=== PATIENT | female | born 1950 | race Caucasian/White ===

== ENCOUNTER → 2018-03-13 | Outpatient (CLI) | payer OTHER, MEDICARE ==
[~2018-03-13] MED LIST: IOPAMIDOL (ISOVUE 370) 100 ML BTL IV ONE; METOPROLOL TARTRATE 5 MG/5 ML INJ ONE
== END ==
LOC: FIMAGING 09:45
PROVIDERS: ATTEND Internal Medicine Cardiovascular Disease
DX: I25.10 Atherosclerotic heart disease of native coronary artery without angina pectoris (principal); I77.819 Aortic ectasia, unspecified site; I42.9 Cardiomyopathy, unspecified; E78.5 Hyperlipidemia, unspecified; I51.7 Cardiomegaly
CPT/HCPCS: 75574; Q9967; 82565-PO

== ENCOUNTER 2018-07-13 07:20 | Day surgery (SDC) | payer OTHER, MEDICARE ==
[2018-07-13] MEDS ORDERED: NS 1,000 ML IV ONE (07:25)
[2018-07-13] MEDS ORDERED: diphenhydrAMINE 25 MG CAP PO ONE (07:25)
[2018-07-13] MEDS ORDERED: ASPIRIN EC 325 MG TAB PO ONE (07:25)
[2018-07-13] MEDS ORDERED: FAMOTIDINE 20 MG TAB PO ONE (07:25)
[2018-07-13] MEDS ORDERED: DIAZEPAM 5 MG TAB PO ONE (07:25)
[2018-07-13 08:17] LABS: PLATELET COUNT 202 10^3/uL (150-400)
[2018-07-13 08:25] LABS: INR 0.89 (0.83-1.16); PROTIME(PATIENT) 12.3 SEC (12.0-15.0)
--- NOTE | 2018-07-13 08:32 | CPEKG ---
Test Reason : OPEN Blood Pressure : / mmHG Vent. Rate : 065 BPM Atrial Rate : 064 BPM P-R Int : 138 ms QRS Dur : 077 ms QT Int : 438 ms P-R-T Axes : 039 043 207 degrees QTc Int : 456 ms Sinus rhythm Probable left atrial enlargement LVH with secondary repolarization abnormality ST depression, consider ischemia, diffuse lds Confirmed by Mart Shafer ([id number]) on 07/13/2018 8:31:54 AM Referred By: Confirmed By:Mart Shafer
[2018-07-13] MEDS ORDERED: fentaNYL 100 MCG/2 ML INJ ONE (08:39)
[2018-07-13] MEDS ORDERED: LIDOCAINE 1% 300 MG/30 ML SDV ONE (08:39)
[2018-07-13] MEDS ORDERED: MIDAZOLAM 2 MG/2 ML VIAL ONE (08:40)
[2018-07-13] MEDS ORDERED: IOPAMIDOL (ISOVUE-370) 150 ML BTL IV ONE (08:40)
[2018-07-13] MEDS ORDERED: HEPARIN 10,000 UNIT/10 ML MDV (1,000 UNIT/ML) ONE (08:40)
[2018-07-13] MEDS ORDERED: VERAPAMIL 5 MG/2 ML VIAL ONE (08:40)
--- NOTE | 2018-07-13 10:13 | PDPROPOC ---
Sedation Plan of Care Sedation Plan of Care: vital signs stable, mental status noted, patient educated of risks, benefits, alternatives, patient can tolerate sedation ASA Classification: ASA 2 Planned drugs: fentanyl, midazolam Mallampati Score: Class 2 Mallampati Reference Image: Patient passed 3-3-2 rule?: Yes
--- NOTE | 2018-07-13 10:13 | PDHPUP ---
History & Physical Update H&P update statement: This history and physical update is based on an assessment of the patient which was completed after admission or registration (within 24 hours), but prior to the surgery/procedure. H&P update: H&P reviewed & patient examined, no change in patient's condition since H&P completed
--- NOTE | 2018-07-13 10:56 | PDDXCAT ---
Diagnostic Cath Note - . Date: 07/14/18 Indication: CCC Class III and IV angina on medical treatment - Procedure Access: left wrist Procedure: left heart catheterization, coronary angiography, left ventriculogram - Materials Left Heart Cath size: 5F Left Heart Cath materials: JL3.5, JR4.0 - Findings-Left Heart Catheterization LM: The LAD and Left circumflex arise from seperate ostia from the left coronary cusp. LAD: The LAD is massively dilated throughout its entire course. The diagonal system is widely dilated also. There are spots in the course of the LAD and diagonal where there is narrowing most consistent with some type of stricture. 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 No flow limiting obstruction is identified. LCX: The left circumflex is at least 10mm in size and gives rise to a large obtuse marginal branch as well as a posterior descending vessel that is codominant. The entire system is dilated throughout its course without evidence of flow limiting obstruction, dissection or thrombus. There is prominent viscerocameral fistula tracts. RCA: The RCA is 3mm in size and co-dominant. The vessel gives rise to a posterior decsending artery. There is a prominent viscero-cameral fistula to the LV cavity. EDP: 30mmHg LVEF: 75% Wall motion: On the LV gram there is hyperdynamic LV systolic function. The EF is 75%. The patient has apical hypertrophy with an "jae of spades" appearance. There is moderate mitral regurgitation upon pullback across the left ventricular outflow tract and aortic valve without evidence of obstruction. 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 There is no gradient on pullback across the aortic valve or left ventricular outflow tract. There is no evidence of heather dissection or aneurysm formation of the thoracic aorta which appears to be normal in caliber. - Findings-Right Heart Catheterization AO: Complications: NONE Estimated blood loss: <50ml Closure method: TR Band Assessment: The patient has non flow-limiting coronary disease with a co- dominant right coronary and circumflex system. The patient has apical hypertrophy without evidence of outflow tract obstruction. The left coronary system is dilated and ectatic and drains directly into the left ventricular chamber in an apperance suggestive of prominent Thebesian vein drainage. 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 Plan: The patient's left coronary artery system is dilated and ectatic. 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 I would like the patient to have a cardiac MRI and follow up with cardiology. Her case will be presented at the case conference tomorrow morning 07/14/2017. 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 as noted above, which is very rare but when present is often associated with other congenital abnormalities. Intervention: NONE Patient Problems: Problems Problem Status Onset Coronary artery ectasia Acute
[2018-07-13] MEDS ORDERED: ONDANSETRON 4 MG/2 ML VIAL IVP PRN (11:56)
[2018-07-13] MEDS ORDERED: HYDROCODONE/APAP 5/325 TAB PO PRN (11:56)
[2018-07-13] MEDS ORDERED: ATROPINE SULFATE 1 MG/10 ML SYR IVP PRN (11:56)
[2018-07-13] MEDS ORDERED: NITROGLYCERIN 0.4 MG BTL SL PRN (11:56)
[2018-07-13] MEDS ORDERED: OXYCODONE/APAP 5/325 TAB PO PRN (11:56)
== END 2018-07-13 17:21 | disposition home or self-care (01) ==
LOC: FCATH 07:20
PROVIDERS: ATTEND Internal Medicine Cardiovascular Disease
DX: I25.119 Atherosclerotic heart disease of native coronary artery with unspecified angina pectoris (principal); I42.2 Other hypertrophic cardiomyopathy; I08.1 Rheumatic disorders of both mitral and tricuspid valves; E78.5 Hyperlipidemia, unspecified; E03.9 Hypothyroidism, unspecified; Z82.49 Family history of ischemic heart disease and other diseases of the circulatory system
CPT/HCPCS: J1644; J2250; J3010; Q9967

== ENCOUNTER → 2018-09-15 | Outpatient (CLI) | payer OTHER, MEDICARE ==
[~2018-09-15] MED LIST changes: +GADOBUTROL 10 ML VIAL IVP ONE; -IOPAMIDOL (ISOVUE 370) 100 ML BTL IV ONE; -METOPROLOL TARTRATE 5 MG/5 ML INJ ONE
== END ==
LOC: FIMAGING 12:18
PROVIDERS: ATTEND Internal Medicine Cardiovascular Disease
DX: I35.0 Nonrheumatic aortic (valve) stenosis (principal); I25.10 Atherosclerotic heart disease of native coronary artery without angina pectoris
CPT/HCPCS: 75561; A9585; 82565-PO